=== PATIENT | male | born 1990 | race Caucasian/White ===

== ENCOUNTER 2020-01-16 17:07 | Emergency (ER) | payer OTHER, SELFPAY ==
[2020-01-16 17:23] VITALS: BP 144/105; PULSE 74; RESP 20; TEMP 37.1; O2SAT 98; BMI 40.6
--- NOTE | 2020-01-16 17:29 | HMH.EDUTC ---
[facility] Disposition Condition on Discharge: Good Time of Disposition: 17:42 <SalgadoKenia ramirez E - Last Filed: 01/16/20 18:17> <Vaughn Maurer - Last Filed: 01/16/20 19:24> Clinical Impression: Intermittent chest pain, Pleuritic chest pain Disposition: Home, Self-Care Instructions: DI for Acute Pain -- Adult Prescriptions: methylPREDNISolone [Medrol 4mg tab] 4 mg PO DIRECTED #21 tab Transmission Status: Pending to [facility] # Pantoprazole Sodium [Protonix 40mg tablet] 40 mg PO DAILY 30 Days #30 tab Transmission Status: Pending to [facility] # Referrals: PCP,Danna [Primary Care Provider] - Medical Decision Making - Abelino Inquiry Pt receiving controlled substance: No Abelino was queried for this patient: No - Lab Data Result diagrams: 01/16/20 17:45 01/16/20 17:45 <SalgadoGisell - Last Filed: 01/16/20 18:17> - Medical Records Medical records reviewed: Yes: I reviewed the patient's medical records. - Lab Data Lab results reviewed: Yes: I reviewed the patient's lab results. Result diagrams: 01/16/20 17:45 01/16/20 17:45 - Radiology Data #1 Image(s): Chest Preliminary Findings: Normal/NAD - ECG Data Tracing #1 I reviewed this ECG and interpreted as documented below: Normal Sinus Rhythm: Yes <Vaughn Maurer - Last Filed: 01/16/20 19:24> Vital Signs: 01/16/20 17:23 01/16/20 17:42 Temperature 98.7 F 98.4 F Temperature Source Oral Oral Pulse Rate [Right Brachial] 74 55 L Respiratory Rate 20 16 Blood Pressure [Right Arm] 144/105 H 117/70 Blood Pressure Mean [Right Arm] 118 85 Blood Pressure Source [Right Arm] Automatic Cuff Automatic Cuff Blood Pressure Position [Right Arm] Sitting 02 Sat by Pulse Oximetry 98 100 Oxygen Delivery Method Room Air Room Air - Lab Data Lab Results 01/16/20 17:45: WBC 5.2, RBC 4.92, Hgb 15.8, Hct 45.0, MCV 91.4, MCH 32.2 H, MCHC 35.2, RDW 12.9, Plt Count 287, MPV 7.2 L, Neut % (Auto) 54.6, Lymph % (Auto) 35.2, [place] % (Auto) 5.2, Eos % (Auto) 4.7, Baso % (Auto) 0.4, Neut # (Auto) 2.8, Lymph # (Auto) 1.8, [place] # (Auto) 0.3, Eos # (Auto) 0.2, Baso # (Auto) 0.0 01/16/20 17:45: Sodium 140, Potassium 3.8, Chloride 99, Carbon Dioxide 31 H, Anion Gap 13.8, BUN 20, Creatinine 1.10, Estimated Creat Clear 109, Estimated GFR 79, Est GFR ( Amer) 96, Glucose 94, Calcium 9.5, Troponin I < 0.01 Orders (Tests/Meds): ED MEDICATIONS Discontinued Medications Generic Name Dose Route Start Last Admin Trade Name Freq PRN Reason Stop Dose Admin Ketorolac Tromethamine 30 mg 01/16/20 18:26 01/16/20 18:28 Toradol 30mg/Ml Vial IV 01/16/20 18:27 30 mg ONCE ONE Administration Methylprednisolone Sodium Succinate 125 mg 01/16/20 18:26 01/16/20 18:28 Solu-Medrol 125mg/2ml Vial IV 01/16/20 18:27 125 mg ONCE ONE Administration ORDERS Category Date Time Status Chest XR 2 view (NOT portable) [XR chest 2V] Stat Exams 01/16/20 17:41 Taken Troponin I Q3H Lab 01/16/20 20:45 Ordered Troponin I Q3H Lab 01/16/20 23:45 Ordered Medical Decision Narrative: Patient reports intermittent chest pain on and off for 3 days that seems to be worse at times after eating States that earlier pain was throbbing ache like pain and felt like it was shooting into his back area States that he took a sheryl seltzer and made him belch and seemed to relieve the pain for a little bit but then it returned and was worse. States that the pain is eased off now but came in to get checked States that he made appointment with his PCP on Wednesday but came in to get checked due to pain he had today Spoke with patient and recommended transfer to ED for further workup and evaluation and patient agreed to transfer Patient transferred to room 6 and report given to September RN (Kenia Salgado) [facility] HPI - General Mode of Arrival: Ambulatory Source of Information: Patient Limitations: No Limitations Description of Symptoms (Recalled from
--- NOTE | 2020-01-16 17:31 | PC.NURSE ---
PATIENT SENT TO ER PER ABBEY ALMAZAN APRN FOR FURTHER EVALUATION FOR C/O CHEST PAIN. ABBEY SPOKE WITH Yuki VALE RN. PATIENT TO ER ROOM 6
--- NOTE | 2020-01-16 17:41 | ECG_ITS ---
APPROVED REPORT Exam: Resting ECG HR:65 bpm ECG Measurements Heart Rate 65 AXES UT 148 P 45 QRSd 108 QRS 5 QT 414 T 22 QTc 430 <Conclusion> Sinus rhythm with marked sinus arrhythmia Otherwise normal ECG Electronically signed by : Spenser Sousa, 01/17/2020 14:02:30
--- NOTE | 2020-01-16 17:41 | XR_ITS ---
PROCEDURE: XR CHEST 2V CLINICAL HISTORY: CHEST DISCOMFORT Midsternal chest pain COMPARISON: CR CXR2V XR chest 2V from 10/16/2018 FINDINGS: The cardiomediastinal silhouette and pulmonary vascularity are within normal limits. The lungs are clear without infiltrates, suspicious nodules, or pleural effusions. No acute bony abnormalities. IMPRESSION: No acute findings. Dictated b Dimas Stuart MD 01/17/2020 06:11 Dimas Stuart MD in [facility] 01/17/2020 06:11
[2020-01-16 17:42] VITALS: BP 117/70; PULSE 55; RESP 16; TEMP 36.9; O2SAT 100; BMI 43.4
[2020-01-16 17:56] LABS: Basophils % 0.4 % (0.1-2.0); Eosinophils # 0.2 K/mm3 (0.0-0.4); Eosinophils % 4.7 % (0.1-12.0); Hemoglobin 15.8 g/dL (14.1-18.0); Lymphocytes # 1.8 K/mm3 (0.7-4.5); Lymphocytes % 35.2 % (10-50); Mean Corpuscular HGB Conc 35.2 g/dL (31.8-35.4); Mean Corpuscular Hemoglobin 32.2 pg (27.0-31.2); Mean Corpuscular Volume 91.4 fl (80-94); Mean Platelet Volume 7.2 fl (7.4-10.4); Monocytes # 0.3 K/mm3 (0.1-1.0); Monocytes % 5.2 % (1.7-9.3); Neutrophils # 2.8 K/mm3 (1.8-7.8); Neutrophils % 54.6 % (37.0-80.0); Platelet Count 287 K/mm3 (142-424); Red Blood Count 4.92 M/mm3 (4.60-6.20); Red Cell Distribution Width 12.9 % (11.5-17.5); White Blood Count 5.2 K/mm3 (4.8-10.8)
[2020-01-16 18:00] LABS: Blood Urea Nitrogen 20 mg/dl (9-20); Calcium 9.5 mg/dl (8.4-10.2); Carbon Dioxide 31 mmol/L (22.0-30.0); Creatinine Clearance Estimated 109 mL/min (50-200); Estimated Glomerular Filt Rate 79 ml/min (>60); GFR (African American) 96 ML/MIN (>60); Glucose 94 mg/dl (74-100); Potassium 3.8 mmoL/L (3.5-5.1); Sodium 140 mmol/L (136-145)
[2020-01-16 18:10] LABS: Anion Gap 13.8 mEq/L (5-15); Chloride 99 mmol/L (98-107)
[2020-01-16 18:13] LABS: Troponin I < 0.01 ng/ml (0.00-0.034)
[2020-01-16 19:27] VITALS: BP 118/67; PULSE 60; RESP 16; O2SAT 95
[2020-01-16 20:13] VITALS: BP 121/63; PULSE 62; RESP 16; TEMP 36.9; O2SAT 97
== END 2020-01-16 20:20 | disposition home or self-care (01) ==
LOC: UTC 17:15 → ER 17:31
PROVIDERS: Emergency Provider Family Medicine
DX: R07.81 Pleurodynia (principal); F17.290 Nicotine dependence, other tobacco product, uncomplicated; Z88.0 Allergy status to penicillin
CPT/HCPCS: 71046; 80048; 84484; 85025; 93005; 96374; 96375; 99283

== ENCOUNTER → 2021-01-23 13:54 | Outpatient (CLI) | payer OTHER, SELFPAY ==
[2021-01-23 18:24] LABS: 3Hr Motility Quality Rapid Progression (Mod-Rapid); 3Hr Sperm Motility 50 % (50-60); Motility Quality Rapid Progression (Mod-Rapid); Semen Viscosity Normal (Normal); Sperm Count 71 mil/mm3 (20-160); Sperm Motility 50 % (50-90); WBCs,Semen Small
[2021-01-23 18:25] LABS: Sperm Morphology Normal (Normal)
== END ==
PROVIDERS: Visit Provider Internal Medicine
DX: Z31.41 Encounter for fertility testing (principal)
CPT/HCPCS: 89320

== ENCOUNTER → 2021-04-13 18:02 | Outpatient (CLI) | payer OTHER, SELFPAY | PROVIDERS: Visit Provider Nurse Practitioner Family | DX: Z20.822 Contact with and (suspected) exposure to COVID-19 (principal) | CPT/HCPCS: C9803; U0003; U0005 ==

== ENCOUNTER → 2021-08-07 16:09 | Outpatient (CLI) | payer OTHER, SELFPAY | PROVIDERS: PCP Internal Medicine; Visit Provider Nurse Practitioner Family | DX: Z02.4 Encounter for examination for driving license (principal) ==

== ENCOUNTER 2022-05-11 11:12 | Emergency (ER) | payer OTHER, SELFPAY ==
--- NOTE | 2022-05-11 11:12 | ECG_ITS ---
APPROVED REPORT Exam: Resting ECG HR:76 bpm ECG Measurements Heart Rate 76 AXES ME 149 P 49 QRSd 113 QRS 28 QT 389 T 7 QTc 420 Conclusion SINUS RHYTHM MODERATE INTRAVENTRICULAR CONDUCTION DELAY [110+ ms QRS DURATION] BORDERLINE ECG UNCONFIRMED REPORT Electronically signed by : Bashir Peng MD 05/11/2022 19:57:55
[2022-05-11 11:13] VITALS: BP 125/95; PULSE 82; RESP 18; TEMP 36.7; O2SAT 100; BMI 45.8
--- NOTE | 2022-05-11 11:16 | PC.NURSE ---
BETH CHAND T TENZIN for patient eval
--- NOTE | 2022-05-11 11:16 | PC.NURSE ---
DR. SUMMERS AT BEDSIDE
--- NOTE | 2022-05-11 11:18 | XR_ITS ---
FINAL REPORT TECHNIQUE: Single view chest CLINICAL HISTORY: Midsternal chest pain COMPARISON: 01/16/2020 FINDINGS: A single view of the chest was obtained. The heart and mediastinum are within normal limits. The lungs are clear. There is no pneumothorax. Osseous structures are unremarkable. IMPRESSION: No acute cardiopulmonary process. Reviewed, Interpreted and Dictated by Sher Quigley III, MD Transcribed by Lakisha Crouch Authenticated and . [facility]
[2022-05-11 11:27] LABS: Basophils % 0.9 % (0.1-2.0); Eosinophils # 0.2 K/mm3 (0.0-0.4); Eosinophils % 4.5 % (0.1-12.0); Hematocrit 49.6 % (42.0-52.0); Hemoglobin 16.6 g/dL (14.1-18.0); Lymphocytes # 1.3 K/mm3 (0.7-4.5); Lymphocytes % 28.3 % (10-50); Mean Corpuscular HGB Conc 33.5 g/dL (31.8-35.4); Mean Corpuscular Hemoglobin 31.2 pg (27.0-31.2); Mean Corpuscular Volume 93.1 fl (80-94); Mean Platelet Volume 7.3 fl (7.4-10.4); Monocytes # 0.3 K/mm3 (0.1-1.0); Monocytes % 5.5 % (1.7-9.3); Neutrophils # 2.8 K/mm3 (1.8-7.8); Neutrophils % 60.7 % (37.0-80.0); Platelet Count 302 K/mm3 (142-424); Red Blood Count 5.33 M/mm3 (4.60-6.20); Red Cell Distribution Width 12.8 % (11.5-17.5); White Blood Count 4.7 K/mm3 (4.8-10.8)
[2022-05-11 11:30] VITALS: BP 137/87; PULSE 70; O2SAT 97
[2022-05-11 11:31] LABS: Alanine Aminotransferase 38 U/L (12-78); Albumin Level 4.6 g/dl (3.5-5.0); Albumin/Globulin Ratio 1.6 (1.1-1.8); Alkaline Phosphatase 70 U/L (38-126); Anion Gap 9.8 mEq/L (5-15); Aspartate Amino Transferase 35 U/L (17-59); Bilirubin,Total 0.4 mg/dl (0.2-1.3); Blood Urea Nitrogen 17 mg/dl (9-20); Calcium 9.7 mg/dl (8.4-10.2); Carbon Dioxide 31 mmol/L (22.0-30.0); Chloride 101 mmol/L (98-107); Creatinine Clearance Estimated 107 mL/min (50-200); Estimated Glomerular Filt Rate 78 ml/min (>60); GFR (African American) 94 ML/MIN (>60); Globulin 2.8 g/dL (1.3-3.2); Glucose 100 mg/dl (74-100); Potassium 3.8 mmoL/L (3.5-5.1); Sodium 138 mmol/L (136-145); Total Protein,Serum 7.4 g/dl (6.3-8.2)
--- NOTE | 2022-05-11 11:32 | PC.NURSE ---
XR AT BEDSIDE
[2022-05-11 11:47] LABS: Troponin I < 0.01 ng/ml (0.00-0.034)
[2022-05-11 12:01] VITALS: BP 121/71; PULSE 69; O2SAT 96
--- NOTE | 2022-05-11 12:01 | HMH.EDGENADL ---
Discharge Plan Disposition Patient Disposition: Home, Self-Care Condition: Good Prescriptions Prescriptions: No Action methylprednisolone 4 MG tablet 4 mg PO DIRECTED Qty: 21 0RF Rx Instructions: Take as directed on package instructions pantoprazole 40 MG tablet,delayed release (DR/EC) 40 mg PO DAILY 30 Days Qty: 30 2RF Referrals Follow up/Referrals: Joseluis Tariq [Primary Care Provider] - See instructions Activity Restrictions/Add. Instructions Additional Instructions/Restrictions: Please follow up with your primary care physician tomorrow for further workup of your chest pain. Please return to ED if symptoms reoccur. Clinical Impressions Clinical Impression: Chest pain Instructions Patient Instructions: DI for Chest Pain Print Language Print Language: Malaysian Discharge ED Provider: Paloma Pool Adult HPI General Chief complaint: Chest Pain Stated complaint: CP Time Seen by Provider: 05/11/22 11:15 Mode of Arrival: Ambulatory Limitations: No Limitations Description of Symptoms (Recalled from ER Triage Doc. by RN): PT WITH C/O CHEST PAIN, MID CHEST. STARTED ABOUT 2 HOURS AGO. DOES NOT RADIATE. REPORTS SWEATING. DENIES N/V/D History of Present Illness HPI narrative: Rashi is a 31-year-old male with no significant past medical history presenting to the emergency department with substernal chest pain which started 2 hours prior to arrival. Patient reports a sharp sensation with no associated radiation. Also reports diaphoresis but denies nausea vomiting. Patient reports symptom onset occurred while he was sitting in his truck. Patient drives trucks for living. He denies any recent fevers, cough or other infectious-like symptoms. No recent trauma to the chest. No lower extremity swelling or pain. No history of blood clots or blood thinners use. MD complaint: chest pain Onset (ago): hour(s) Location: chest Radiation: non-radiation Severity: mild Severity scale (1-10): 5 Quality: sharp Consistency: constant Relieving factors: none Exacerbating factors: none Associated symptoms: diaphoresis Treatments prior to arrival: none Related Data Previous Rx's Medication Instructions Recorded methylprednisolone 4 mg tablet 4 mg PO DIRECTED #21 tabs 01/16/20 pantoprazole 40 mg tablet,delayed 40 mg PO DAILY 30 days #30 tabs 01/16/20 release Allergies Allergy/AdvReac Type Severity Reaction Status Date / Time Penicillins Allergy Verified 01/16/20 17:48 PFSH PFS Disclaimer: The information contained in this section may have been updated after the patient was seen, as this information can be updated by other users. Surgical History History of appendectomy History of hernia surgery Family History Other No significant family history Social History Smoking Status: Never smoker alcohol intake: never substance use type: denies use current occupational status: employed Travel in the last 8 weeks: None housing: other ROS Obtained: Yes All systems reviewed & no additional complaints except as documented Physical Exam General General appearance: alert and in no apparent distress Head Head exam: atraumatic and normocephalic Eye Eye exam: Present normal appearance and EOMI ENT ENT exam: Present normal exam, normal oropharynx and mucous membranes moist Neck Neck exam: Present normal inspection and full ROM Chest Chest inspection: Present normal inspection Respiratory Respiratory exam: Present normal lung sounds bilaterally Cardiovascular Cardiovascular exam: Present regular rate and normal heart sounds Abdominal Exam Abdominal exam: Present soft and normal bowel sounds Back Exam Back exam: Present normal inspection and full ROM Neurological Exam Neurological exam: Present alert and orien
--- NOTE | 2022-05-11 12:24 | PC.NURSE ---
ROUNDED ON PT, LIGHTS OFF. NO NEEDS AT THIS TIME
--- NOTE | 2022-05-11 12:25 | PC.NURSE ---
1150 ROUNDED ON PT, NO NEEDS AT THIS TIME
[2022-05-11 12:31] VITALS: BP 107/77; PULSE 74; O2SAT 96
[2022-05-11 12:46] VITALS: BP 107/77; PULSE 74; RESP 12; TEMP 36.7; O2SAT 99
== END 2022-05-11 12:46 | disposition home or self-care (01) ==
PROVIDERS: Emergency Provider Student in an Organized Health Care Education/Training Program; PCP Internal Medicine
DX: R07.9 Chest pain, unspecified (principal)
CPT/HCPCS: 71045; 80053; 84484; 85025; 93005; 99284

== ENCOUNTER 2023-08-09 08:15 | Outpatient (CLI) | payer SELFPAY | END 2023-08-09 09:00 | disposition home or self-care (01) | LOC: UTC.OUT 08:16 | PROVIDERS: Visit Provider Nurse Practitioner Family | DX: Z02.4 Encounter for examination for driving license (principal) ==

== ENCOUNTER 2023-10-16 08:08 | Emergency (ER) | payer BC, SELFPAY ==
[2023-10-16 08:20] VITALS: BP 127/73; PULSE 79; RESP 20; TEMP 37; O2SAT 96; BMI 44.3
--- NOTE | 2023-10-16 08:32 | ED_ITS ---
Discharge Plan Disposition Patient Disposition: Home, Self-Care Condition: Good Prescriptions Prescriptions: New doxycycline hyclate 100 mg capsule 100 mg PO BID Qty: 20 0RF methylprednisolone [Medrol (Johnnie)] 4 mg tablets,dose pack See Rx Instructions .Route .COMPLEX 6 Days Qty: 21 0RF Rx Instructions: taper pack; guaifenesin [Mucinex] 600 mg tablet extended release 12hr 1,200 mg PO BID PRN (Reason: cough) Qty: 20 0RF benzonatate 100 mg capsule 100 mg PO TID PRN (Reason: cough) Qty: 30 0RF Referrals Follow up/Referrals: Joseluis Tariq [Primary Care Provider] - See instructions Activity Restrictions/Add. Instructions Additional Instructions/Restrictions: * Start antibiotic today. Be sure to complete entire prescription even if feeling better * Monitor temp. Tylenol every 4 hours as needed and / or ibuprofen every 6 hours as needed ( As long as your primary care physician has told you that it ok to take both. For fever/aches/pains ER if no less than 101 despite Tylenol or Motrin * Humidifier/vaporizer or hot steamy shower * Mucinex during the day for your cough and cough suppressant only at night. Be sure to drink lots of water. *Tessalon Perles will not cause drowsiness but use at bedtime to help stop cough so that you may get some rest. *Start steroid today. Helps with inflammation therefore, cough and wheezing. Follow directions on the package. Reviewed side effects. Patient reports taking them before. Follow up IMMEDIATELY for new or worsening of symptoms OR no noticeable improvement over the next 48-72 hours. 911 immediately for any life threatening symptoms such as chest pain or difficulty breathing Clinical Impressions Clinical Impression: Bronchitis Sinusitis Qualifiers: Sinusitis location: unspecified location Chronicity: unspecified Qualified Code(s): J32.9 - Chronic sinusitis, unspecified Instructions Patient Instructions: DI for Sinusitis, Acute Bronchitis Discharge ED Provider: Kenia Salgado [facility] General Stated complaint: cough, congestion, Mode of Arrival: Ambulatory Source of Information: Patient Limitations: No Limitations Time Seen by Provider: 10/16/23 08:32 Description of Symptoms (Recalled from Triage Doc. by RN): PATIENT C/O COUGH, CONGESTION, AND SHAKES X 4-5 DAYS. HEENT Symptoms (Recalled from RN notes): Yes Resp Symptoms (Recalled from RN notes): Yes Skin Symptoms (Recalled from RN notes): No MS Symptoms (Recalled from RN notes): No Functional Status (Recalled from RN notes): WNL History of Present Illness Provider Complaint: Patient states that he has been sick since Wednesday States that he has been having sinus congestion and pressure, cough, feels like it is moving into his chest, chills and headache and cough States at times he will cough up some mucous and others not States today he was still not feeling any better so he came in to get checked Related Data Previous Rx's Medication Instructions Recorded benzonatate 100 mg capsule 100 mg PO TID PRN cough #30 caps 10/16/23 doxycycline hyclate 100 mg capsule 100 mg PO BID #20 caps 10/16/23 guaifenesin 600 mg tablet, 1,200 mg (2 x 600 mg) PO BID PRN 10/16/23 extended release 12 hr (Mucinex) cough #20 tabs methylprednisolone 4 mg tablets in See Rx Instructions .Route 10/16/23 a dose pack (Medrol (Johnnie)) .COMPLEX 6 days #21 tabs Allergies Allergy/AdvReac Type Severity Reaction Status Date / Time Penicillins Allergy Verified 01/16/20 17:48 Worker's Comp Is this a Worker's Comp case?: No [facility] Disclaimer: The information contained in this section may have been updated after the patient was seen, as this information can be updated by other users. Surgical History (Updated 10/16/23 @ 08:27 by Jeny Meza RN) History of tonsillectomy History of hernia surgery History of appendectomy Family History Other No significant family history Social History Smoking Status: Never smoker alcohol intake: never substance use type: denies use current occupational status: employed Travel in the last 8 weeks: None housing: other ROS Obtained: Yes All systems reviewed & no additional complaints except as documented and Yes Systems reviewed as appropriate & no additional complaints e xcept as documented Constitutional Constitutional: Reports system reviewed and no additional complaints, except as documented, Reports as per HPI, Reports body ache, Reports chills and Reports headache(s) ENT Ears, Nose, Mouth, and Throat: Reports system reviewed and no additional complaints, except as documented, Reports as per HPI, Reports headache(s), Reports sinus pain and Reports sinus pressure Cardiovascular Cardiovascular: Reports system reviewed and no additional complaints, except as documented and Reports as per HPI Respiratory Respiratory: Reports system reviewed and no additional complaints, except as documented, Reports as per HPI, Reports chest congestion and Reports cough Neurologic Neurologic: Reports headache(s) Physical Exam General General appearance: alert and in no apparent distress ENT ENT exam: Present mucous membranes moist Expanded ENT Exam Nose exam: Present sinus tenderness Throat exam: Present other (PND noted) Respiratory Respiratory exam: Present normal lung sounds bilaterally; Absent respiratory distress or wheezes Cardiovascular Cardiovascular exam: Present regular rate, normal rhythm and normal heart sounds Abdominal Exam Abdominal exam: Present soft and normal bowel sounds; Absent distention or tenderness Neurological Exam Neurological exam: Present alert, oriented X3 and normal gait Medical Decision Making Abelino Inquiry Pt receiving controlled substance: No Abelino was queried for this patient: No Vital Signs: 10/16/23 08:20 Temperature 98.6 F Temperature Source Oral Pulse Rate [Left Brachial] 79 Respiratory Rate 20 Blood Pressure [Left Arm] 127/73 Blood Pressure Mean [Left Arm] 91 Blood Pressure Source [Left Arm] Automatic Cuff Blood Pressure Position [Left Arm] Sitting 02 Sat by Pulse Oximetry 96 Oxygen Delivery Method Room Air
[2023-10-16 08:40] VITALS: BP 127/73; PULSE 79; RESP 20; TEMP 37; O2SAT 96
== END 2023-10-16 08:42 | disposition home or self-care (01) ==
PROVIDERS: Emergency Provider Nurse Practitioner; PCP Internal Medicine
DX: J20.9 Acute bronchitis, unspecified (principal); J01.90 Acute sinusitis, unspecified; R51.9 Headache, unspecified; R05.9 Cough, unspecified
CPT/HCPCS: 99204; 99212; G0463